=== PATIENT | male | born 1955 | race Two or more races ===

== ENCOUNTER 2019-08-04 14:07 | Outpatient (RCR) | payer MEDICARE, SELFPAY ==
[2019-07-07 18:29] LABS: Absolute Lymphocyte Count 1.39 X10^3/uL (0.83-4.51); Absolute Neutrophil Count 2.6 X10^3/uL (2.0-7.7); Basophil# 0.03 X10^3/uL; Basophil% 0.4 % (0-1); Eosinophil# 0.03 X10^3/uL; Eosinophils% 0.4 % (0-5); Hematocrit 30.5 % (40-54); Hemoglobin 9.1 g/dL (13.0-16.5); Lymphocyte # 1.39 X10^3/ul (4.0); Lymphocyte % 20.4 % (19-41); Mean Corp Hgb Conc 29.8 g/dL (32-36); Mean Corpuscular Hgb 30.2 pg (27.0-32.0); Mean Corpuscular Volume 101.3 fL (80-94); Mean Platelet Vol. 10.4 fl (6.2-12.0); Monocyte# 2.46 X10^3/uL; Monocyte% 36.1 % (0-10); NRBC Flagged by Analyzer 0 % (0-5); Neutrophil % 38.3 % (47-70); POSITIVE DIFFERENTIAL YES; POSITIVE MORPHOLOGY YES; Platelet Count 255 K/mm3 (150-450); RBC Distribution Width CV 14.7 % (11.6-14.6); RBC Distribution Width SD 55.2 fl (35.1-43.9); Red Blood Count 3.01 M/mm3 (4.6-6.2); White Blood Count 6.8 K/mm3 (4.4-11.0)
[2019-07-07 18:33] LABS: International Normalized Ratio 2.4; Prothrombin Time (Protime)PT. 26.4 SECONDS (11.7-14.9)
[2019-07-07 18:42] LABS: ALB/GLOB Ratio 0.4 RATIO (0.9-2.4); AST(SGOT) 53 U/L (15-37); Alanine Aminotransfer ALT/SGPT 53 U/L (16-61); Albumin, Serum 2.2 g/dL (3.2-5.0); Alkaline Phosphatase 226 U/L (45-117); Anion Gap 5 (5-15); BUN 21 mg/dL (7-18); BUN/Creat Ratio 28.3 RATIO (10-20); Calcium,Total 8.3 mg/dL (8.5-10.1); Chloride 105 mmol/L (98-107); Creatinine, Serum 0.74 mg/dL (0.70-1.30); EST Glomerular Filtration Rate 112 mL/min (>60); Est Glom Filt Rate - Afr Amer 136 mL/min (>60); Globulin 5.4 g/dL (2.2-4.2); Glucose 80 mg/dL (74-106); LDH 249 U/L (87-241); Potassium 4.4 mmol/L (3.5-5.1); Protein, Total 7.6 g/dL (6.4-8.2); Sodium Level 138 mmol/L (136-145)
[2019-07-07 19:52] LABS: Differential Indicated SCAN CRITERIA MET
[2019-07-07 19:54] LABS: Platelet Estimate ADEQUATE (ADEQ); Red Cell Morphology NORM C+C NORMAL (NORM C&C)
[2019-07-14 18:14] LABS: Hematocrit 27.1 % (40-54); Hemoglobin 8.1 g/dL (13.0-16.5); Mean Corp Hgb Conc 29.9 g/dL (32-36); Mean Corpuscular Hgb 29.2 pg (27.0-32.0); Mean Corpuscular Volume 97.8 fL (80-94); Mean Platelet Vol. 11.3 fl (6.2-12.0); POSITIVE COUNT YES; POSITIVE DIFFERENTIAL YES; POSITIVE MORPHOLOGY YES; Platelet Count 201 K/mm3 (150-450); RBC Distribution Width SD 54.2 fl (35.1-43.9); Red Blood Count 2.77 M/mm3 (4.6-6.2); White Blood Count 11.4 K/mm3 (4.4-11.0)
[2019-07-14 18:27] LABS: International Normalized Ratio 3.1; Prothrombin Time (Protime)PT. 32.4 SECONDS (11.7-14.9)
[2019-07-14 18:28] LABS: BUN 22 mg/dL (7-18); Glucose 73 mg/dL (74-106)
[2019-07-14 18:29] LABS: ALB/GLOB Ratio 0.5 RATIO (0.9-2.4); AST(SGOT) 33 U/L (15-37); Alanine Aminotransfer ALT/SGPT 39 U/L (16-61); Albumin, Serum 2.2 g/dL (3.2-5.0); Alkaline Phosphatase 140 U/L (45-117); Anion Gap 6 (5-15); BUN/Creat Ratio 31.6 RATIO (10-20); Calcium,Total 7.8 mg/dL (8.5-10.1); Chloride 110 mmol/L (98-107); EST Glomerular Filtration Rate 121 mL/min (>60); Est Glom Filt Rate - Afr Amer 147 mL/min (>60); Globulin 4.8 g/dL (2.2-4.2); LDH 329 U/L (87-241); Magnesium 1.8 mg/dL (1.6-2.6); Potassium 4.4 mmol/L (3.5-5.1); Sodium Level 140 mmol/L (136-145)
[2019-07-14 18:30] LABS: Differential Indicated MANUAL DIFF
[2019-07-14 19:17] LABS: Eosinophil 1 % (0-5); Lymphocyte 24 % (19-41); Metamyelocyte 5 % (0-1); Monocyte 21 % (0-10); Myelocyte 4 (0-0); Neutrophil-Band 8 % (0-5); Neutrophil-Segmented 37 % (47-70); Total Cells Counted 100 (MANUAL DIFF)
[2019-07-14 19:28] LABS: Absolute Lymphocyte Count 2.74 X10^3/uL (0.83-4.51); Absolute Neutrophil Count 5.1 X10^3/uL (2.0-7.7)
[2019-07-14 19:29] LABS: Anisocytosis RARE; Macrocytosis RARE; Platelet Estimate ADEQUATE (ADEQ); Red Cell Morphology N CHROM NORMAL (NORM C&C)
[2019-07-15 15:27] LABS: Pathologist Review Reviewed
[2019-07-21 17:29] LABS: Hematocrit 26.7 % (40-54); Mean Corpuscular Hgb 28.3 pg (27.0-32.0); Mean Corpuscular Volume 94.3 fL (80-94); Mean Platelet Vol. 10.9 fl (6.2-12.0); POSITIVE COUNT YES; POSITIVE DIFFERENTIAL YES; POSITIVE MORPHOLOGY YES; Platelet Count 316 K/mm3 (150-450); RBC Distribution Width CV 15.4 % (11.6-14.6); RBC Distribution Width SD 53.1 fl (35.1-43.9); Red Blood Count 2.83 M/mm3 (4.6-6.2); White Blood Count 14.6 K/mm3 (4.4-11.0)
[2019-07-21 17:37] LABS: International Normalized Ratio 2.6; Prothrombin Time (Protime)PT. 28.1 SECONDS (11.7-14.9)
[2019-07-21 17:45] LABS: ALB/GLOB Ratio 0.4 RATIO (0.9-2.4); AST(SGOT) 21 U/L (15-37); Alanine Aminotransfer ALT/SGPT 29 U/L (16-61); Albumin, Serum 2.2 g/dL (3.2-5.0); Alkaline Phosphatase 125 U/L (45-117); Anion Gap 6 (5-15); BUN 24 mg/dL (7-18); BUN/Creat Ratio 30.2 RATIO (10-20); Calcium,Total 7.5 mg/dL (8.5-10.1); Chloride 106 mmol/L (98-107); Creatinine, Serum 0.79 mg/dL (0.70-1.30); EST Glomerular Filtration Rate 104 mL/min (>60); Est Glom Filt Rate - Afr Amer 126 mL/min (>60); Globulin 5.1 g/dL (2.2-4.2); Glucose 81 mg/dL (74-106); LDH 281 U/L (87-241); Magnesium 1.9 mg/dL (1.6-2.6); Phosphorus 3.2 mg/dL (2.5-4.9); Potassium 3.5 mmol/L (3.5-5.1); Protein, Total 7.3 g/dL (6.4-8.2); Sodium Level 135 mmol/L (136-145)
[2019-07-21 19:50] LABS: Differential Indicated MANUAL DIFF
[2019-07-21 20:00] LABS: Anisocytosis 1+; Differential Comment SCANNED; Lymphocyte 10 % (19-41); Metamyelocyte 1 % (0-1); Monocyte 24 % (0-10); Myelocyte 3 (0-0); Neutrophil-Band 1 % (0-5); Neutrophil-Segmented 61 % (47-70); Ovalocyte RARE; Platelet Estimate ADEQUATE (ADEQ); Total Cells Counted 100 (MANUAL DIFF)
[2019-07-21 20:01] LABS: Burr Cells RARE
[2019-07-21 20:28] LABS: Absolute Neutrophil Count 9.1 X10^3/uL (2.0-7.7); Neutrophil # 9.05 X10^3/uL (2.7-7.7)
[2019-07-21 20:29] LABS: Absolute Lymphocyte Count 1.46 X10^3/uL (0.83-4.51); Lymphocyte # 1.46 X10^3/ul (4.0)
[2019-07-21 20:36] LABS: Acanthocytes RARE; Polychromasia RARE
[2019-07-22 12:04] LABS: Pathologist Review Reviewed
[2019-08-04 15:00] LABS: Hematocrit 21.6 % (40-54); Hemoglobin 6.6 g/dL (13.0-16.5); Mean Corp Hgb Conc 30.6 g/dL (32-36); Mean Corpuscular Hgb 26.4 pg (27.0-32.0); Mean Corpuscular Volume 86.4 fL (80-94); Mean Platelet Vol. 11.3 fl (6.2-12.0); POSITIVE COUNT YES; POSITIVE DIFFERENTIAL YES; POSITIVE MORPHOLOGY YES; Platelet Count 221 K/mm3 (150-450); RBC Distribution Width CV 17.9 % (11.6-14.6); RBC Distribution Width SD 56.3 fl (35.1-43.9); White Blood Count 19.1 K/mm3 (4.4-11.0)
[2019-08-04 15:03] LABS: Differential Indicated MANUAL DIFF
[2019-08-04 15:07] LABS: Prothrombin Time (Protime)PT. 69.5 SECONDS (11.7-14.9)
[2019-08-04 15:21] LABS: International Normalized Ratio 8.1
[2019-08-04 15:25] LABS: ALB/GLOB Ratio 0.4 RATIO (0.9-2.4); AST(SGOT) 35 U/L (15-37); Alanine Aminotransfer ALT/SGPT 30 U/L (16-61); Albumin, Serum 1.8 g/dL (3.2-5.0); Alkaline Phosphatase 146 U/L (45-117); Anion Gap 10 (5-15); BUN 26 mg/dL (7-18); BUN/Creat Ratio 30.4 RATIO (10-20); Calcium,Total 7.5 mg/dL (8.5-10.1); Chloride 105 mmol/L (98-107); Creatinine, Serum 0.86 mg/dL (0.70-1.30); EST Glomerular Filtration Rate 95 mL/min (>60); Est Glom Filt Rate - Afr Amer 115 mL/min (>60); Globulin 4.8 g/dL (2.2-4.2); Glucose 74 mg/dL (74-106); LDH 325 U/L (87-241); Phosphorus 2.1 mg/dL (2.5-4.9); Potassium 3.2 mmol/L (3.5-5.1); Protein, Total 6.6 g/dL (6.4-8.2); Sodium Level 137 mmol/L (136-145)
[2019-08-04 15:29] LABS: Lymphocyte 10 % (19-41); Metamyelocyte 1 % (0-1); Monocyte 11 % (0-10); Myelocyte 2 (0-0); Neutrophil-Band 3 % (0-5); Neutrophil-Segmented 73 % (47-70); Total Cells Counted 100 (MANUAL DIFF)
[2019-08-04 15:30] LABS: Anisocytosis 2+; Hypochromasia 1+; Platelet Estimate ADEQUATE (ADEQ)
[2019-08-04 15:31] LABS: Schistocytes RARE; Spherocyte 1+; Target Cells RARE
[2019-08-04 15:33] LABS: Absolute Neutrophil Count 14.5 X10^3/uL (2.0-7.7)
[2019-08-04 15:34] LABS: Absolute Lymphocyte Count 1.91 X10^3/uL (0.83-4.51)
[2019-08-05 13:42] LABS: Pathologist Review Reviewed
== END 2019-08-04 18:00 | disposition home or self-care (01) ==
LOC: HHLAB 14:07
DX: K50.90 Crohn's disease, unspecified, without complications (principal)
CPT/HCPCS: 80053; 83615; 83735; 84100; 85025; 85610

== ENCOUNTER → 2019-08-04 14:07 | Outpatient (REF) | payer MEDICARE, SELFPAY | LOC: HHLAB 14:07 | DX: Z00.00 Encounter for general adult medical examination without abnormal findings (principal) | CPT/HCPCS: 80053; 83615; 83735; 84100; 85025; 85610 ==